=== PATIENT | male | born 1975 | race American Indian/Alaskan Native ===

== ENCOUNTER 2019-12-24 23:41 | Emergency (ER) | payer BC, OTHER ==
[2019-12-25] MEDS ORDERED: Doxycycline 100 MG Cap PO ONE (00:24)
--- NOTE | 2019-12-25 00:28 | EDM.PDOC ---
ED HPI GENERAL MEDICAL PROBLEM - General Chief Complaint: Skin Complaint Stated Complaint: INFECTED RIGHT FOOT Time Seen by Provider: 12/25/19 00:05 Source of Information: Reports: Patient History Limitations: Reports: No Limitations - History of Present Illness INITIAL COMMENTS - FREE TEXT/NARRATIVE: 44 yo hx of DM and diabetic foot ulcers presents with concerns of infect ulcer on sole of right foot Has long standing ulcers here Spent several days in the car, believes there may have been excess pressure on the area Tonight noted more redness and drainage No fever No pain. - Related Data Allergies Allergy/AdvReac Type Severity Reaction Status Date / Time ibuprofen Allergy Hives Verified 12/25/19 00:00 Home Meds: Home Meds Doxycycline [Vibramycin] 100 mg PO BID 7 Days #14 cap 12/25/19 [Rx] Lisinopril [Zestril] 10 mg PO DAILY 12/25/19 [History] metFORMIN [Glucophage] 500 mg PO BID 12/25/19 [History] Past Medical History HEENT History: Reports: Impaired Vision Musculoskeletal History: Reports: Fracture Neurological History: Reports: Neuropathy, Diabetic - Past Surgical History HEENT Surgical History: Reports: Oral Surgery GI Surgical History: Reports: Appendectomy Other Neurological Surgeries/Procedures: foot drop, diabetic ulcer in right foot. Musculoskeletal Surgical History: Reports: Other (See Below) Other Musculoskeletal Surgeries/Procedures:: hip fracture Dermatological Surgical History: Reports: Skin Graft Social & Family History - Tobacco Use Smoking Status *Q: Never Smoker - Caffeine Use Caffeine Use: Reports: Coffee, Energy Drinks, Soda - Recreational Drug Use Recreational Drug Use: No ED ROS GENERAL - Review of Systems Review Of Systems: See Below Constitutional: Reports: No Symptoms HEENT: Reports: No Symptoms Respiratory: Reports: No Symptoms Cardiovascular: Reports: No Symptoms Endocrine: Reports: No Symptoms GI/Abdominal: Reports: No Symptoms : Reports: No Symptoms Musculoskeletal: Reports: No Symptoms Skin: Reports: Wound Neurological: Reports: No Symptoms Psychiatric: Reports: No Symptoms Hematologic/Lymphatic: Reports: No Symptoms Immunologic: Reports: No Symptoms ED EXAM, SKIN/RASH Exam: See Below Exam Limited By: No Limitations General Appearance: Alert, No Apparent Distress Ears: Normal External Exam Nose: Normal Inspection Throat/Mouth: Normal Inspection Head: Atraumatic, Normocephalic Neck: Normal Inspection Respiratory/Chest: No Respiratory Distress Cardiovascular: Tachycardia GI/Abdominal: No Distention Back Exam: Normal Inspection Extremities: Other (right foot ulcer lateral aspect of foot near base of 5th toe. Surround erythema and mild purulent drainage.) Neurological: Alert, Oriented Psychiatric: Normal Affect, Normal Mood Skin: Warm, Dry Course - Vital Signs Last Recorded V/S: Last Vital Signs Temp 36.3 C 12/24/19 23:58 Pulse 107 H 12/24/19 23:58 Resp 18 12/24/19 23:58 BP 136/97 H 12/24/19 23:58 Pulse Ox 99 12/24/19 23:58 - Orders/Labs/Meds Meds: Medications Discontinued Medications Generic Name Dose Route Start Last Admin Trade Name Freq PRN Reason Stop Dose Admin Doxycycline Hyclate 100 mg 12/25/19 00:24 Vibramycin PO 12/25/19 00:25 ONETIME ONE - Re-Assessments/Exams Free Text/Narrative Re-Assessment/Exam: 44 yo presents with concerns of infected diabetic foot ulcer Noted to be mildly tachycardic in triage, but overall well appearing and no systemic symptoms Exam is concerning for possible infection of pre-existing ulcer Started on doxycycline Will follow up with podiatry tomorrow 12/25/19 00:40 Departure - Departure Time of Disposition: 00:25 Disposition: Home, Self-Care 01 Clinical Impression: Diabetic foot infection - Discharge Information Prescriptions: Doxycycline [Vibramycin] 100 mg PO BID 7 Days #14 cap Instructions: Diabetes Mellitus and Foot Care Referrals: PCP,None [Primary Care Provider] - Forms: ED Department Discharge Additional Instructions: Please take the prescribed antibiotic. Follow up with your foot doctor as discussed tomorrow morning. Sepsis Event Note - Evaluation Sepsis Screening Result: No Definite Risk - Focused Exam Vital Signs: Vital Signs Temp Pulse Resp BP Pulse Ox 12/24/19 23:58 36.3 C 107 H 18 136/97 H 99 Date Exam was Performed: 12/25/19 Time Exam was Performed: 00:32
== END 2019-12-25 00:38 | disposition home or self-care (01) ==
LOC: JP.ED 23:41
DX: E11.621 Type 2 diabetes mellitus with foot ulcer (principal); E11.40 Type 2 diabetes mellitus with diabetic neuropathy, unspecified; Z79.84 Long term (current) use of oral hypoglycemic drugs; Z79.899 Other long term (current) drug therapy
CPT/HCPCS: 99283; A9270

== ENCOUNTER 2024-10-08 12:19 | Emergency (ER) | payer BC ==
[2024-10-08 13:12] LABS: BASOPHILS ABSOLUTE AUTO 0.02 K/uL (0.00-0.10); BASOPHILS PERCENT AUTO 0.2 % (0.1-1.3); EOSINOPHILS ABSOLUTE AUTO 0.02 K/uL (0.00-0.40); EOSINOPHILS PERCENT AUTO 0.2 % (0.0-5.4); HEMATOCRIT 46.2 % (38.4-49.7); HEMOGLOBIN 16.5 g/dL (12.9-16.9); IMMATURE GRAN ABSOLUTE AUTO 0.03 K/uL (0.00-0.23); IMMATURE GRAN PERCENT AUTO 0.2 % (0.0-0.7); LYMPHOCYTES ABSOLUTE AUTO 0.54 K/uL (0.8-3.3); LYMPHOCYTES PERCENT AUTO 4.5 % (11.4-47.7); MEAN CORPUSCULAR HEMOGLOBIN 30.3 pg (31.6-35.5); MEAN CORPUSCULAR HGB CONC 35.7 g/dL (31.6-35.5); MEAN CORPUSCULAR VOLUME 84.8 fL (81.4-99.0); MONOCYTES ABSOLUTE AUTO 0.52 K/uL (0.20-0.90); MONOCYTES PERCENT AUTO 4.3 % (3.3-12.6); NEUTROPHILS ABSOLUTE AUTO 10.93 K/uL (1.0-7.6); NEUTROPHILS PERCENT AUTO 90.6 % (40.0-78.1); PLATELET COUNT,PLT 202 K/uL (130-375); RED BLOOD CELL COUNT 5.45 M/uL (4.14-5.76); WHITE BLOOD CELL COUNT,WBC 12.1 K/uL (3.2-11.0)
[2024-10-08] MEDS: Acetaminophen 500 MG Tab PO ONE (13:25)
[2024-10-08 13:44] LABS: A/G RATIO 0.9 (1.2-2.2); ALANINE AMINOTRANSFERASE,ALT 28 U/L (12-78); ALBUMIN 3.6 g/dL (3.4-5.0); ALKALINE PHOSPHATASE 114 U/L (46-116); ANION GAP 9.8 mmol/L (5.0-14.0); ASPARTATE AMNIOTRANSFERASE,AST 21 U/L (15-37); BILIRUBIN TOTAL 1.4 mg/dL (0.2-1.0); BLOOD UREA NITROGEN,BUN 17 mg/dL (7-18); C-REACTIVE PROTEIN 3.41 mg/dL (<0.50); CALCIUM 8.4 mg/dL (8.5-10.1); CARBON DIOXIDE,CO2 30 mmol/L (21-32); CHLORIDE,CL 103 mmol/L (100-108); EST CRCL DRUG DOSING (CG) 92.26 mL/min; ESTIMATED GFR 92 mL/min (>60); GLUCOSE RANDOM 130 mg/dL (74-106); POTASSIUM,K 3.8 mmol/L (3.6-5.2); PROTEIN TOTAL,TP 7.6 g/dL (6.4-8.2); SODIUM,NA 139 mmol/L (140-148)
[2024-10-08] MEDS: Iopamidol 612 MG/ML 100 ML Bottle IV SCH (14:40)
[2024-10-08] MEDS: Sodium Chloride 0.9% 100 ML IV SCH (14:40)
[2024-10-08] MEDS: Sodium Chloride 0.9% 10 ML Syringe FLUSH PRN (14:41)
== END 2024-10-08 15:29 | disposition home or self-care (01) ==
LOC: JP.ED 12:19
DX: K52.9 Noninfective gastroenteritis and colitis, unspecified (principal); I10 Essential (primary) hypertension; E78.00 Pure hypercholesterolemia, unspecified; E11.9 Type 2 diabetes mellitus without complications; Z90.49 Acquired absence of other specified parts of digestive tract; Z79.82 Long term (current) use of aspirin; Z88.8 Allergy status to other drugs, medicaments and biological substances; Z79.899 Other long term (current) drug therapy
CPT/HCPCS: 36415; 74177; 80053; 83605; 85025; 86140; 87428; 99284; A9270; Q9967

== ENCOUNTER 2025-02-23 12:27 | Emergency (ER) | payer BC | END 2025-02-23 14:25 | disposition home or self-care (01) | LOC: JP.ED 12:27 | DX: S20.212A Contusion of left front wall of thorax, initial encounter (principal); M62.838 Other muscle spasm; I10 Essential (primary) hypertension; E78.00 Pure hypercholesterolemia, unspecified; E11.40 Type 2 diabetes mellitus with diabetic neuropathy, unspecified; Z90.49 Acquired absence of other specified parts of digestive tract; Z79.84 Long term (current) use of oral hypoglycemic drugs; Z79.899 Other long term (current) drug therapy; Z88.6 Allergy status to analgesic agent; W01.198A Fall on same level from slipping, tripping and stumbling with subsequent striking against other object, initial encounter | CPT/HCPCS: 71250; 99283 ==